=== PATIENT | female | born 1985 | race African-American/Black ===

== ENCOUNTER 2023-02-04 11:49 | Emergency (ER) | payer MEDICAID ==
[~2023-02-04] VITALS: Ht 162.6 cm; Wt 74.8 kg
[2023-02-04 13:00] VITALS: BP 118/77; TEMP 98.2
[2023-02-04] MEDS ORDERED: IBUPROFEN 600 MG TABLET PO ONE (13:30)
[2023-02-04 13:50] VITALS: O2SAT 98
[2023-02-04] MEDS ORDERED: IBUP-1955 PO (19:38)
[2023-02-04] MEDS ORDERED: AMOX-430 PO (19:41)
== END 2023-02-04 13:51 | disposition left against medical advice (07) ==
LOC: ER 11:51
DX: M54.2 Cervicalgia (principal); M79.601 Pain in right arm; W50.3XXA Accidental bite by another person, initial encounter; Y93.89 Activity, other specified; Y92.89 Other specified places as the place of occurrence of the external cause; Y99.8 Other external cause status

== ENCOUNTER 2023-02-04 14:46 | Emergency (ER) | payer MEDICAID ==
[~2023-02-04] VITALS: Ht 162.6 cm; Wt 74.8 kg
[2023-02-04 15:12] VITALS: BP 125/66; TEMP 98
[2023-02-04] MEDS ORDERED: KETOROLAC TROMETHAMINE INJ 30 MG/ML VIAL IM ONE (16:00)
[2023-02-04] MEDS ORDERED: KETOROLAC TROMETHAMINE INJ 30 MG/ML VIAL ONE (16:25)
[2023-02-04] MEDS ORDERED: TDAP [DIPH/PERTUSSIS/TET] 0.5 ML VIAL IM ONE ×2 (16:45→17:00)
[2023-02-04] MEDS ORDERED: ACETAMINOPHEN 325 MG TABLET ONE (16:45)
[2023-02-04] MEDS ORDERED: ACETAMINOPHEN 325 MG TABLET PO ONE (17:00)
[2023-02-04] MEDS ORDERED: IBUP-1955 PO (19:38)
[2023-02-04] MEDS ORDERED: AMOX-430 PO (19:41)
[2023-02-04 19:46] VITALS: O2SAT 97
== END 2023-02-04 19:48 | disposition home or self-care (01) ==
LOC: ER 14:47
DX: M25.511 Pain in right shoulder (principal); M79.632 Pain in left forearm; M79.631 Pain in right forearm; Y04.1XXA Assault by human bite, initial encounter; Y92.89 Other specified places as the place of occurrence of the external cause; Y99.8 Other external cause status
CPT/HCPCS: 99284; 96372; 90471; 90715; 73090 ×2; 73030; J1885